=== PATIENT | male | born 1950 | race Caucasian/White ===

== ENCOUNTER 2019-02-23 14:44 | Emergency (ER) | payer OTHER ==
[~2019-02-23] VITALS: Ht 177.8 cm; Wt 81.7 kg
[~2019-02-23 14:44] MED LIST: ADULT LOW DOSE81 MG PO; ALLOPURINOL 10100 M1 PO; ANTACID MULTI-1 EACH PO; ASPIR 8181 MG PO; CIPRO500 MG PO; ENALAPRIL MALEA10 M1 PO; ENALAPRIL MALEAT5 M1 PO; FISH OIL 1,001000 M2 PO; FLAGYL500 MG PO; FLOMAX0.4 MG PO; PEPCID20 MG PO; PRILOSEC2.5 MG PO; PRILOSEC40 MG PO; RESTORIL7.5 MG PO; XANAX 0.5 MG0.5 MG; XANAX 1 MG TABLE1 MG PO; ZANTAC 150MG T150 MG PO; ZONEGRAN100 MG PO
[2019-02-23 17:00] LABS: BASOPHILS 0.4 % (0.0-2.0); HEMATOCRIT 47.9 % (42.0-52.0); HEMOGLOBIN 16.6 gm/dL (14.0-18.0); LYMPHOCYTES 2.6 % (24.0-44.0); MCH 29.6 pg (26.0-34.0); MCHC 34.7 g/dL (28.0-37.0); MCV 85.3 fL (80.0-100.0); PLATELET COUNT 218 thou/uL (150-400); RBC 5.62 mil/uL (4.50-6.00); WBC 11.3 thou/uL (4.0-11.0)
[2019-02-23 17:09] LABS: URINE BILIRUBIN NEGATIVE (Negative); URINE BLOOD TRACE (Negative); URINE CLARITY CLEAR; URINE COLOR YELLOW; URINE GLUCOSE-RANDOM* NEGATIVE (Negative); URINE KETONES 1+ (Negative); URINE LEUKOCYTES-REFLEX NEGATIVE (Negative); URINE NITRITE-REFLEX NEGATIVE (Negative); URINE PROTEIN (DIPSTICK) 2+ (Negative); URINE SPECIFIC GRAVITY >= 1.030 (1.005-1.035); URINE UROBILINOGEN 0.2 E.U./dl (0.2-1.0)
[2019-02-23 17:09] LABS: CALCIUM 8.8 mg/dL (8.5-10.1); CREATININE 1.2 mg/dL (0.7-1.3); POTASSIUM 3.1 mmol/L (3.5-5.1)
[2019-02-23 17:14] LABS: ALBUMIN 3.9 g/dL (3.4-5.0); TOTAL BILIRUBIN 0.7 mg/dL (<0.1-1.0); TOTAL PROTEIN 7.4 g/dL (6.4-8.2)
[2019-02-23 17:20] LABS: CRYSTALS None Seen /LPF (None Seen); HYALINE CASTS 0-3 Few /LPF (None Seen); SQUAMOUS None Seen /LPF (0-3)
[2019-02-23 17:22] LABS: URINE RBC 0-2 Rare /HPF (0-2); URINE WBC-REFLEX 0-5 Rare /HPF (0-5)
[2019-02-23] MEDS ORDERED: ONDANSETRON HCL4 M2 PO (18:15)
[2019-02-23] MEDS ORDERED: COZAAR 25 MG TA25 M1 PO (18:22)
[2019-02-23 19:27] VITALS: BP 120/85
== END 2019-02-23 19:28 | disposition home or self-care (01) ==
LOC: ER 14:44
PROVIDERS: Nurse Practitioner Family
DX: R19.7 Diarrhea, unspecified (principal); I10 Essential (primary) hypertension; K21.9 Gastro-esophageal reflux disease without esophagitis; F41.9 Anxiety disorder, unspecified; E11.9 Type 2 diabetes mellitus without complications; Z88.8 Allergy status to other drugs, medicaments and biological substances

== ENCOUNTER 2019-03-11 08:23 | Emergency (ER) | payer OTHER ==
[~2019-03-11] VITALS: Ht 177.8 cm; Wt 81.7 kg
[~2019-03-11 08:23] MED LIST changes: +COZAAR 25 MG TA25 M1 PO; +ONDANSETRON HCL4 M2 PO
[2019-03-11 09:40] LABS: ABSOLUTE NEUTROPHILS 3.4 thou/uL (1.4-8.2); EOSINOPHILS 2.4 % (0.0-3.0); HEMATOCRIT 47.1 % (42.0-52.0); HEMOGLOBIN 16.1 gm/dL (14.0-18.0); LYMPHOCYTES 43.1 % (24.0-44.0); MCHC 34.1 g/dL (28.0-37.0); MCV 85.1 fL (80.0-100.0); PLATELET COUNT 265 thou/uL (150-400); POLYS 41.5 % (36.0-66.0); RBC 5.54 mil/uL (4.50-6.00); WBC 8.2 thou/uL (4.0-11.0)
[2019-03-11 09:43] LABS: ANION GAP 12 mmol/L (7-16); BUN 25 mg/dL (7-18); CALCIUM 10.5 mg/dL (8.5-10.1); CHLORIDE 101 mmol/L (98-107); CO2 28 mmol/L (21-32); CREATININE 1.1 mg/dL (0.7-1.3); GLUCOSE 113 mg/dL (74-106); POTASSIUM 3.1 mmol/L (3.5-5.1); SODIUM 141 mmol/L (136-145)
[2019-03-11 09:54] LABS: ALBUMIN 4.1 g/dL (3.4-5.0); DIRECT BILIRUBIN 0.1 mg/dL (<0.1-0.3); LIPASE 289 U/L (73-393); SGOT 25 U/L (15-37); SGPT 43 U/L (30-65); TOTAL BILIRUBIN 0.5 mg/dL (<0.1-1.0); TOTAL PROTEIN 7.6 g/dL (6.4-8.2); TROPONIN-I <0.06 ng/mL (<0.06)
[2019-03-11 11:31] VITALS: BP 132/84
--- NOTE | 2019-03-12 16:54 | EKG ---
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: [facility] : 1950 Requested By: Olamide Cao Order Number: [id number] MD: Rubens Martinez Measurements Intervals [place] Rate: 66 P: 40 MO: 209 QRS: -18 QRSD: 91 T: 37 QT: 401 QTc: 421 Interpretive Statements Sinus rhythm Atrial premature complexes Early R-wave progression Compared to ECG 01/13/2015 22:52:52 Atrial premature complex(es) now present Electronically Signed On 03-12-2019 16:53:51 CDT by Rubens Martinez [email or web address] ��������������������������������������������� <ELECTRONICALLY SIGNED> ���������������������������������������� By: Rubens Martinez MD, [facility] ��������������������������������������������� 03/12/19 1653 0 0 Rubens Martinez MD, [facility] /EPI
== END 2019-03-11 11:25 | disposition home or self-care (01) ==
LOC: ER 08:23
PROVIDERS: Emergency Medicine
DX: R07.89 Other chest pain (principal); I10 Essential (primary) hypertension; K21.9 Gastro-esophageal reflux disease without esophagitis; F41.9 Anxiety disorder, unspecified; E11.9 Type 2 diabetes mellitus without complications; E78.00 Pure hypercholesterolemia, unspecified; Z88.8 Allergy status to other drugs, medicaments and biological substances

== ENCOUNTER 2021-07-17 13:14 | Emergency (ER) | payer OTHER ==
[~2021-07-17] VITALS: Ht 177.8 cm; Wt 77.1 kg
[2021-07-17 13:45] LABS: ABSOLUTE NEUTROPHILS 8.1 thou/uL (1.4-8.2); BASOPHILS 0.6 % (0.0-2.0); EOSINOPHILS 0.7 % (0.0-3.0); HEMATOCRIT 40.3 % (42.0-52.0); HEMOGLOBIN 13.6 gm/dL (14.0-18.0); LYMPHOCYTES 16.3 % (24.0-44.0); MCH 30.1 pg (26.0-34.0); MCHC 33.6 g/dL (28.0-37.0); MCV 89.5 fL (80.0-100.0); MONOCYTES 9.5 % (1.0-8.0); PLATELET COUNT 218 thou/uL (150-400); POLYS 72.9 % (36.0-66.0); RBC 4.51 mil/uL (4.50-6.00); RDW 12.7 % (10.5-14.5); WBC 11.1 thou/uL (4.0-11.0)
[2021-07-17 13:50] LABS: CALCIUM 8.8 mg/dL (8.5-10.1); CREATININE 1.4 mg/dL (0.7-1.3); POTASSIUM 3.4 mmol/L (3.5-5.1)
[2021-07-17 13:57] LABS: ALBUMIN 3.7 g/dL (3.4-5.0); TOTAL BILIRUBIN 0.6 mg/dL (0.2-1.0); TOTAL PROTEIN 6.7 g/dL (6.4-8.2)
[2021-07-17 15:04] LABS: URINE BILIRUBIN NEGATIVE (Negative); URINE BLOOD 3+ (Negative); URINE CLARITY CLEAR; URINE COLOR YELLOW; URINE GLUCOSE-RANDOM* NEGATIVE (Negative); URINE KETONES TRACE (Negative); URINE LEUKOCYTES-REFLEX NEGATIVE (Negative); URINE NITRITE-REFLEX NEGATIVE (Negative); URINE PROTEIN (DIPSTICK) NEGATIVE (Negative); URINE SPECIFIC GRAVITY 1.025 (1.005-1.035); URINE UROBILINOGEN 0.2 E.U./dl (0.2-1.0)
[2021-07-17 15:14] LABS: MUCUS 0-3 Light strn/LPF (None Seen); SQUAMOUS 0-3 Few /LPF (0-3)
[2021-07-17 15:15] LABS: BACTERIA-REFLEX None Seen /HPF (None Seen); CASTS None Seen /LPF (None Seen); CRYSTALS None Seen /LPF (None Seen); URINE WBC-REFLEX 0-5 Rare /HPF (0-5)
[2021-07-17] MEDS ORDERED: TORADOL 10 MG T10 MG PO (15:28)
[2021-07-17] MEDS ORDERED: ZOFRAN ODT4 MG PO (15:28)
[2021-07-17 15:30] VITALS: BP 120/71
--- NOTE | 2021-07-18 12:48 | EKG ---
[address] [address] [place] [address] ELECTROCARDIOGRAM REPORT Name: MOLLY MARIE [facility] [id number] Admission: 07/17/21 Attend Phys: Discharge: 07/17/21 Date of : 52 Report #: [id number] [facility] ED Test Date: 2021-07-17 Test Time: 15:05:22 Pat Name: MOLLY MARIE Department: Room: Gender: [employer]: : 1950 Requested By: Sandra Russell Order Number: [id number] MD: Rubens Martinez Measurements Intervals [place] Rate: 63 P: -15 HI: 211 QRS: -10 QRSD: 82 T: 13 QT: 397 QTc: 407 Interpretive Statements Sinus rhythm Low voltage Baseline wander in lead(s) V3 Compared to ECG 03/11/2019 08:31:45 Atrial premature complex(es) no longer present Electronically Signed On 07-18-2021 12:48:19 CDT by Rubens Martinez [email or web address] <ELECTRONICALLY SIGNED> By: Rubens Martinez MD, [facility] 07/18/21 1248 1505 1505 Rubens Martinez MD, [facility] /EPI
--- NOTE | 2021-07-18 12:49 | EKG ---
[address] [address] [employer] [place] [address] ELECTROCARDIOGRAM REPORT Name: MOLLY MARIE Room #: [facility]#: [id number] Admission: 07/17/21 Attend Phys: Discharge: 07/17/21 Date of : 52 Report #: [id number] [facility] ED Test Date: 2021-07-17 Test Time: 15:05:22 Pat Name: MOLLY MARIE Department: Room: Gender: [employer] Agent: : 1950 Requested By: Sandra Russell Order Number: [id number] MD: Rubens Martinez Measurements Intervals [place] Rate: 63 P: -15 HI: 211 QRS: -10 QRSD: 82 T: 13 QT: 397 QTc: 407 Interpretive Statements Sinus rhythm with first-degree AV block Low voltage, precordial leads Baseline wander in lead(s) V3 Compared to ECG 03/11/2019 08:31:45 Low QRS voltage now present Atrial premature complex(es) no longer present Electronically Signed On 07-18-2021 12:48:45 CDT by Rubens Martinez [email or web address] <ELECTRONICALLY SIGNED> By: Rubens Martinez MD, [facility] 07/18/21 1248 1505 1505 Rubens Martinez MD, [facility] /EPI
== END 2021-07-17 15:30 | disposition home or self-care (01) ==
LOC: ER 13:14
PROVIDERS: Physician Assistant
DX: N20.1 Calculus of ureter (principal); I10 Essential (primary) hypertension; K21.9 Gastro-esophageal reflux disease without esophagitis; F41.9 Anxiety disorder, unspecified; E11.9 Type 2 diabetes mellitus without complications; Z79.899 Other long term (current) drug therapy; Z88.5 Allergy status to narcotic agent